=== PATIENT | female | born 1940 | race Caucasian/White ===

== ENCOUNTER 2016-11-13 05:18 | Day surgery (SDC) | payer MEDICARE, BC ==
[~2016-11-13] VITALS: Ht 165.1 cm; Wt 83.2 kg
--- NOTE | ~2016-11-13 | OP ---
PATIENT NAME: KALINA MERLOS MEDICAL RECORD: [id number] LOCATION:[facility] ADMISSION DATE: SURGEON: TATO GERARD MD DATE OF OPERATION: 11/13/2016 REFERRING PHYSICIAN: Dr. Alberto of [place]. PREOPERATIVE DIAGNOSES: Recent rectal bleeding and history of colon polyps. POSTOPERATIVE DIAGNOSES: History of rectal bleeding, history of colon polyps. OPERATIVE FINDINGS: Moderately severe sigmoid diverticulosis without evidence of active bleeding or current inflammation. Also, external hemorrhoidal tags with some mild prolapse of internal hemorrhoidal columns, possibly the source of recent bleeding, but no evidence of any bleeding at this time. No thrombosis or inflammation. OPERATION PERFORMED: Colonoscopy to cecum. SURGEON: Tato Gerard MD. ANESTHESIA: TIVA per WORK[employer] COMPENSATION EXAMINER. PREOPERATIVE NOTE: Ms. Merlos is a 76-year-old white female patient referred by Dr. Alberto for colonoscopy. She has a history of colon polyps and recently has noted some blood mixed in with her stool. It has been bright red and not melena. She is asymptomatic. She has a history of colon polyps and has not had colonoscopy for several years. She is brought to the GI lab having completed a standard MiraLax bowel prep for colonoscopy today. With the patient under TIVA and monitored per WORKERS COMPENSATION EXAMINER, she was placed in decubitus position and digital rectal exam performed. There was no sign of any anal inflammation or masses. No hemorrhoidal thrombosis. No perianal sepsis. There were fairly large external hemorrhoidal tags with some mild hemorrhoidal prolapse, no evidence of bleeding. There were no masses palpable within the rectum. The Olympus colonoscope was then introduced and advanced to the cecum with little difficulty. The scope was slowly withdrawn. Photographic documentation of the cecum was obtained. The patient had no mucosal lesions, no polyps, et cetera, no sign of inflammation. She had moderately severe diverticulosis in the sigmoid segment. Again, no evidence of bleeding or inflammation at this time. In the rectum, the scope was retroflexed and the upper anal canal examined and no pathology seen. Certainly, no signs of bleeding. The scope was then withdrawn and the patient in stable condition awakened and returned to the outpatient department. I believe Ms. Merlos's rectal bleeding may well have been from diverticular disease. It is possible as well that it could have been from her hemorrhoids, no way to know for sure. I think that she needs to avoid constipation though most certainly. I am recommending a high-fiber diet and either the daily use of a stool softener or fiber supplement, increased oral fluid and especially water intake and the p.r.n. use of MiraLax as a laxative. She should follow up with Dr. Alberto as needed or as he directs and need not to return to see me in my office other than on a p.r.n. basis. She is to resume her usual home medications and high-fiber diet today. OPERATIVE REPORT [id number] GAURANGKALINA Jimenes TRANSINT:[id number] Voice Confirmation ID: [id number] DOCUMENT ID: [id number] TATO GERARD MD CC: KATT ALBERTO MD [id number] DICTATION DATE: 11/13/16833 MACHINE CONTAINER WASHER: 11/13/[address] [facility] [address] [place] [address]
[2016-11-13] MEDS ORDERED: MULTIPLE VITAMI1 TA1 PO (05:43)
[2016-11-13] MEDS ORDERED: GLUCOSAMINE & C1 CAP PO (05:43)
[2016-11-13] MEDS ORDERED: HYZAAR 50-12.51 TAB PO (05:43)
[2016-11-13] MEDS ORDERED: CALCIUM 500 + D1 TAB PO (05:43)
[2016-11-13 05:51] VITALS: BP 126/82; Ht 165.1 cm; Wt 83.2 kg
[2016-11-13 06:07] LABS: HEMATOCRIT 41.7 % (36.0-48.0); MCH 31.8 pg (26.0-34.0); MCHC 33.6 g/dL (31.0-37.0); MCV 94.8 fL (80.0-100.0); MEAN PLATELET VOLUME 10.4 fL (7.4-10.4); RBC 4.4 10x6/uL (4.00-5.40); RDW 15.2 % (11.5-14.5); WBC 9.6 10x3/uL (4.8-10.8)
--- NOTE | 2016-11-13 08:59 | NUR ---
1106 DR. GERARD ROUNDS WITH PT. AND SPOUSE.
== END 2016-11-13 10:00 | disposition home or self-care (01) ==
LOC: D.OPS 05:18
PROVIDERS: Anesthesiology
DX: K57.30 Diverticulosis of large intestine without perforation or abscess without bleeding (principal); K64.8 Other hemorrhoids; K64.4 Residual hemorrhoidal skin tags; Z86.010 Personal history of colon polyps

== ENCOUNTER → 2019-09-04 13:59 | Outpatient (CLI) | payer MEDICARE, BC ==
[2016-11-13 05:51] VITALS: BMI 30.5
[~2019-09-04 13:59] MED LIST: CALCIUM 500 + D1 TAB PO; GLUCOSAMINE & C1 CAP PO; HYZAAR 50-12.51 TAB PO; MULTIPLE VITAMI1 TA1 PO
== END | disposition home or self-care (01) ==
LOC: D.CT 13:59
PROVIDERS: ATTEND Orthopaedic Surgery
DX: S43.004A Unspecified dislocation of right shoulder joint, initial encounter (principal)